=== PATIENT | female | born 1945 | race Caucasian/White ===

== ENCOUNTER 2017-08-22 13:15 | Emergency (ER) | payer OTHER ==
[~2017-08-22] VITALS: Ht 170.2 cm; Wt 90.7 kg
[2017-08-22 13:23] VITALS: BP 130/79
[2017-08-22] MEDS ORDERED: KETOROLAC TROMETH 60MG/2ML VIAL IM ONE (14:45)
== END 2017-08-22 15:44 | disposition home or self-care (01) ==
LOC: ER 13:25
DX: S16.1XXA Strain of muscle, fascia and tendon at neck level, initial encounter (principal); S50.12XA Contusion of left forearm, initial encounter; I50.9 Heart failure, unspecified; F17.210 Nicotine dependence, cigarettes, uncomplicated; M19.90 Unspecified osteoarthritis, unspecified site; X50.1XXA Overexertion from prolonged static or awkward postures, initial encounter; Y93.89 Activity, other specified; Y99.8 Other external cause status; Y92.89 Other specified places as the place of occurrence of the external cause
CPT/HCPCS: 72040; 93005; 96372; 99284; J1885

== ENCOUNTER 2018-10-13 16:26 | Emergency (ER) | payer OTHER ==
[~2018-10-13] VITALS: Ht 170.2 cm; Wt 90.7 kg
[2018-10-13 16:52] VITALS: BP 121/76
[2018-10-13 17:59] LABS: Basophils # (auto) 0 uL; Basophils % (auto) 0.3 % (0.0-2.0); Eosinophils # (auto) 0.5 uL; Eosinophils % (auto) 6.1 % (0.0-7.0); Hematocrit 44.1 % (36.0-46.0); Hemoglobin 14.8 g/dL (12.2-16.2); Lymphocytes # (auto) 2.1 uL; Mean Corpuscular Hemoglobin 33.6 pg (28.0-32.0); Mean Corpuscular Hgb Conc. 33.6 g/dL (32.0-36.0); Mean Corpuscular Volume 99.9 fL (80.0-100.0); Monocytes # (auto) 1.1 uL; Monocytes % (auto) 12.1 % (0.0-12.0); Neutrophils # (auto) 5.2 uL; Neutrophils % (auto) 58.5 % (37.0-80.0); Platelet Count (auto) 202 10^3/uL (140-450); Red Blood Cells 4.41 10^6/uL (4.0-5.20); Red Cell Distribution Width 14.1 % (11.8-14.3)
[2018-10-13 18:13] LABS: Albumin 3.7 g/dL (3.4-5.0); Calcium 9.6 mg/dL (8.5-10.1); Magnesium 2.4 mg/dL (1.6-2.6); Potassium 4.5 mmol/L (3.5-5.1)
[2018-10-13 18:20] LABS: BUN/Creatinine Ratio 17.2; Bilirubin, Total 0.4 mg/dL (0.2-1.0); Total Protein 7.4 g/dL (6.4-8.2)
[2018-10-13 18:21] LABS: INR 0.94 (0.9-1.15); Partial Thromboplastin Time 25.2 sec (23.64-32.05)
[2018-10-13 18:35] LABS: Urine Bacteria NONE SEEN /hpf (None Seen); Urine Blood Negative /uL (Negative); Urine Specific Gravity 1.016 (1.001-1.035); Urine WBC 3 /hpf (0 - 5)
== END 2018-10-13 21:21 | disposition left against medical advice (07) ==
LOC: ER 16:28
DX: R06.02 Shortness of breath (principal); R07.9 Chest pain, unspecified; Z53.21 Procedure and treatment not carried out due to patient leaving prior to being seen by health care provider
CPT/HCPCS: 36415; 71046; 80053; 81001; 83735; 83880; 84484; 85025; 85379; 85610; 85730; 93005